=== PATIENT | female | born 1970 | race Caucasian/White ===

== ENCOUNTER 2021-03-22 18:22 | Emergency (ER) | payer OTHER, SELFPAY ==
--- NOTE | 2021-03-22 18:29 | ED.URI ---
HPI - URI/Sore Throat General Chief Complaint: Headache Stated Complaint: Headache Time Seen by Provider: 03/22/21 18:40 Source: patient and RN notes reviewed Mode of arrival: ambulatory Limitations: no limitations History of Present Illness HPI Narrative: 50-year-old female with history of stage IV kidney disease presents with concern for generally feeling anxious and unwell. Ports she feels foggy and has a mild headache. Reports she had a GI procedure done today and was sent home with a nasogastric tube in place which she vomited up when she got home. Reports she is following up with her GI doctor tomorrow. She reports she has been seeing GI for some time to evaluate an ongoing gastroesophageal reflux problem. She reports she vomited twice this morning, has not vomited since. She reports she ate chips approximately 1 hour ago and has not vomited since. She denies fever, body aches, chills, sweats, cough, diarrhea or vomiting. She reports history of anxiety for which she takes daily medication. Reports she has had a vertical gastric sleeve for which she has had ongoing vomiting for which she sees gastroenterology MD elicited complaint: other (headache) Related Data Home Medications Medication Instructions Recorded Confirmed citalopram mg 03/22/21 citalopram mg 03/22/21 losartan 03/22/21 omeprazole 03/22/21 pantoprazole PO 03/22/21 Allergies Allergy/AdvReac Type Severity Reaction Status Date / Time No Known Allergies Allergy Verified 03/22/21 18:31 Review of Systems Review of Systems: CONSTITUTIONAL: Denies malaise, chills, sweats, or fever. Reports fogginess EYES: Denies visual changes, redness, or discharge. ENT: Denies rhinorrhea, congestion, sinus pain, otalgia or sore throat. CARDIOVASCULAR: Denies chest pain, palpitations, or edema. RESPIRATORY: Denies cough or dyspnea. GASTROINTESTINAL: Denies abdominal pain, nausea, diarrhea, bloody, or mucous stools. Reports 2 episodes of vomiting earlier today GENITOURINARY: Denies dysuria or hematuria. SKIN: Denies rash or itching. MUSCULOSKELETAL: Denies myalgia. NEUROLOGIC: Denies numbness, weakness. Reports mild headache. PSYCHIATRIC: Reports anxiety All systems reviewed & are unremarkable except as noted in HPI and below PMFSH Comments At time of signature, agree with nursing past medical, surgical, social and family history. There is no relevant family history pertinent to the presenting complaint Exam Narrative: GENERAL: Well-appearing, well-nourished, and in no acute distress. HEAD: Normocephalic, atraumatic. EYES: PERRLA, sclera clear, and EOMI. ENT: Nares clear. Mucous membranes moist. TM pearly kirk with sharp light reflex bilaterally; no tragal tenderness. Oropharynx without erythema or lesions. Tonsils not enlarged and without exudate. NECK: Supple CHEST: No respiratory distress. Clear to auscultation. No bony deformities, no asymmetry. Speaks in full sentences. HEART: Regular rate and rhythm. ABDOMEN: Soft, nontender, nondistended, normal active bowel sounds, no palpable masses. EXTREMITIES: Grossly normal range of motion. SKIN: Warm, dry, no visible rash. NEURO: Alert and oriented x3. No focal deficits. PSYCH: Tearful mood and normal affect Course Course Emergency Course: Patient is aware of diagnosis, understands and agrees to treatment plan. Anticipatory guidance given. Patient agrees to follow-up as directed and is aware of reasons to seek care at the emergency department. Portions of this record may have been created with voice recognition software Level of Care: Express Care Visit Vital Signs Vital signs: Reviewed. MDM - URI/Sore Throat MDM Narrative Medical decision making narrative: Exam findings show no acute concerns or changes; patient is non-toxic appearing and is in no distress. Patient is appropriate for outpatient treatment and follow-up. Lab Data Attestation: I reviewed the patient's lab results. Critical Care Time C
[2021-03-22 18:30] VITALS: BP 121/96; PULSE 74; RESP 20; TEMP 36.5; O2SAT 100
[2021-03-22 19:09] LABS: Glucose Point of Care 72 mg/dl (65-105)
== END 2021-03-22 19:12 | disposition home or self-care (01) ==
PROVIDERS: Emergency Provider Nurse Practitioner
DX: R51.9 Headache, unspecified (principal); I10 Essential (primary) hypertension; K21.9 Gastro-esophageal reflux disease without esophagitis
CPT/HCPCS: 82948; 99212; G0463